=== PATIENT | male | born 1960 | race Caucasian/White ===

== ENCOUNTER 2021-04-04 20:49 | Emergency (ER) | payer OTHER ==
[~2021-04-04] VITALS: Ht 185.4 cm; Wt 102.1 kg
--- NOTE | 2021-04-04 20:49 | NUR ---
LUCILA ARCE, PRE-BOOK. TAKEN TO CHAIR
[2021-04-04 20:51] VITALS: BP 165/104
--- NOTE | 2021-04-04 20:55 | NUR ---
60 Y/O MALE BIB [place] [employer] IN CUSTODY FOR PREBOOK CLEARANCE. PT UNDER THE INFLUENCE OF UNCONTROLLED SUBSTANCE. PT PRESENTS DIAPHORETIC. RR EVEN AND UNLABORED, DOES NOT APPEAR IN DISTRESS. AWAKE AND ALERT, ABLE TO ANSWER QUESTIONS APPROPRIATELY MEDHX: DM, HTN, PE
--- NOTE | 2021-04-04 21:13 | NUR ---
Dr. Cheney examining patient.
[2021-04-04] MEDS ORDERED: LORazepam 2 MG/ML VIAL IVP ONE (21:25)
[2021-04-04] MEDS ORDERED: NACL 0.9% 1,000 ML IV ONE (21:25)
--- NOTE | 2021-04-04 21:35 | NUR ---
PT TAKEN TO CT VIA W/C
[2021-04-04 21:42] LABS: BASOPHILS % (AUTO) 0.2 % (0.0-2.0); EOSINOPHILS % (AUTO) 0.3 % (0.0-4.0); HEMATOCRIT 46.7 % (36-52); LYMPHOCYTES # (AUTO) 1.6 K/uL (2.0-11.5); LYMPHOCYTES % (AUTO) 12.2 % (20.5-51.1); MEAN CORPUSCULAR HEMOGLOBIN 30 pg (27-31); MEAN CORPUSCULAR HGB CONC 34 g/dL (33-37); MEAN CORPUSCULAR VOLUME 86.7 fL (80-94); MONOCYTES # (AUTO) 0.9 K/uL (0.8-1.0); MONOCYTES % (AUTO) 7.2 % (1.7-9.3); NEUTROPHILS # (AUTO) 10.4 K/uL (1.8-7.7); NEUTROPHILS % (AUTO) 80.1 % (42.2-75.2); PLATELET COUNT (AUTO) 226 K/uL (140-450); RED BLOOD CELL COUNT(AUTO) 5.39 MIL/uL (4.20-6.10); RED CELL DISTRIBUTION WIDTH 14.2 % (11.6-13.7)
[2021-04-04 22:07] LABS: ALBUMIN 4.7 g/dL (3.4-5.0); ANION GAP 21.8 (8-16); ASPARTATE AMINOTRANSFERASE 39 U/L (15-37); CARBON DIOXIDE 23.2 mmol/L (21-32); CHLORIDE 98 mmol/L (98-107); CREATININE 1.3 mg/dL (0.6-1.3); GFR ARICAN-AMERICAN 72 mL/min (>90); GLUCOSE 342 mg/dL (74-106); LIPASE 53 U/L (73-393); SODIUM SERUM 139 mmol/L (136-145); TOTAL BILIRUBIN 3.6 mg/dL (0.0-1.0); UREA NITROGEN, BLOOD 34 mg/dL (7-18)
[2021-04-04 22:14] VITALS: BP 132/72
[2021-04-04 22:17] LABS: APPEARANCE,URINE CLEAR (CLEAR); BILIRUBIN,URINE 1+ (NEGATIVE); BLOOD, URINE 1+ (NEGATIVE); COLOR,URINE YELLOW (YELLOW); LEUKOCYTE ESTERASE ,URINE NEGATIVE (NEGATIVE); NITRITE, URINE NEGATIVE (NEGATIVE); UGLUCOSE 3+ (NEGATIVE)
[2021-04-04 22:30] LABS: BARBITURATE, URINE NEGATIVE ng/ml (NEG <=200); BENZODIAZEPINE, URINE NEGATIVE ng/mL (NEG <=200); CANNABINOID, URINE NEGATIVE ng/mL (NEG <=50); COCAINE, URINE NEGATIVE ng/mL (NEG <=300); OPIATE, URINE NEGATIVE ng/mL (NEG <=2000); PHENCYCLIDINE SCREEN,URINE NEGATIVE ng/mL (NEG <=25)
--- NOTE | 2021-04-04 23:20 | NUR ---
PATIENT DC HOME STABLE ALL DC INSTRUCTION GAVE AND EXPLAINED INCLUDING CD VITALS SIGNS IN NORMAL LIMITS PATIENT WENT SCORT WITH THE DIGITAL ASSISTANT //Linette NORWOOD
--- NOTE | 2021-04-04 23:27 | NUR ---
PREBOOK CLEARANCE FORM PROVIDED TO OFFICER SIVA, #[id number]
[2021-04-04 23:34] LABS: RBC,URINE 0-5 /HPF (0-5)
== END 2021-04-04 23:20 ==
LOC: MED 20:49
DX: F15.10 Other stimulant abuse, uncomplicated (principal); E11.9 Type 2 diabetes mellitus without complications; I10 Essential (primary) hypertension; Z20.822 Contact with and (suspected) exposure to COVID-19
CPT/HCPCS: 36415; 70450; 71045; 80053; 80305; 81001; 82550; 82553; 83690; 84484; 85025; 87086; 87426; 93005; 96361; 96374; 99285; G0482; J2060; J7030; Q0092